=== PATIENT | female | born 1955 | race Caucasian/White ===

== ENCOUNTER 2016-12-14 06:03 | Emergency (ER) | payer OTHER ==
[~2016-12-14] VITALS: Ht 172.7 cm; Wt 65.0 kg
[~2016-12-14 06:03] MED LIST: ALBU8.5H3 INH; AMLO5TAB4 PO; ASPI-664 PO; ATOR20TA38 PO; AUG875 PO; AZIT250T94 PO; BUPR200T2 PO; CARV12.598 PO; GUAI120S26 PO; HYDR-3498 PO; NIT4 SL
[2016-12-14 06:16] VITALS: Ht 172.7 cm; Wt 65.0 kg
--- NOTE | 2016-12-14 07:16 | ERD ---
ER Documentation Chief Complaint Date/Time DATE: 12/14/16 TIME: 07:07 Chief Complaint Cough x1 month HPI Patient is a 61-year-old female with a history of hypertension, emphysema presents emergency department for concerns of a cough. Patient was seen here 1 month ago. At that time she had a cough. Patient states she took a Z-Beto and cough syrup which significantly improved her symptoms. Patient states her symptoms were resolved. Patient states her symptoms restarted 3 days ago. Patient describes her cough to be dry at this time. Patient reports feeling feverish and having chills. Patient did not check her temperature with a thermometer. Patient denies any chest pain, shortness of breath, nausea, vomiting, jaw pain, left upper extremity pain or loss of consciousness. Patient is requesting refill of cough syrup at this time. Of note, patient reports taking all medication as prescribed. Patient also states her last complete physical exam was 2 months ago with her PCP, does not recall name. ROS All systems reviewed and are negative except as per history of present illness. Medications Home Meds Active Scripts Epvxiuxhsnx-A-Scugugelrr Hb* (Guaifenesin* DM Syrup) 120 Ml Syrup, 5 ML PO Q4H Y for COUGH, #1 BOTTLE Prov:NIVIA TESFAYE PA-C 12/14/16 Benzonatate* (Tessalon Perle*) 100 Mg Capsule, 100 MG PO Q8H Y for COUGH, #20 CAP Prov:NIVIA TESFAYE PA-C 12/14/16 Cetirizine Hcl* (Zyrtec*) 10 Mg Capsule, 10 MG PO DAILY, #10 TAB.CHEW Prov:NIVIA TESFAYE PA-C 12/14/16 Albuterol Sulfate* (Proair HFA*) 8.5 Gm Hfa.aer.ad, 2 PUFF INH Q4H Y for WHEEZING AND SOB, #1 INHALER Prov:ARIANE NG NP 11/14/16 Ipiritnxqik-Q-Xbilkirotx Hb* (Guaifenesin* DM Syrup) 120 Ml Syrup, 10 ML PO Q4H Y for COUGH, #120 ML Prov:ARIANE NG NP 11/14/16 Azithromycin* (Zithromax*) 250 Mg Tablet, 250 MG PO .ZPACK DIRECTED, #6 TAB TAKE 500 MG (2 TABS) THE FIRST DAY THEN 250 MG (1 TAB) DAYS 2-5 Prov:ARIANE NG NP 11/14/16 Hydrocodone Bit-Acetaminophen* ([place]*) 5-325 Mg Tab, 1 TAB PO DAILY Y for PAIN , #7 TAB 0 Refills Prov:WIL ZAMORAC 05/11/15 Amoxicillin-Clavulanate K* (Augmentin*) 875 Mg Tab, 875 MG PO BID, #14 TAB 0 Refills Prov:WIL ZAMORAC 05/11/15 Hydrocodone Bit-Acetaminophen* ([place]*) 5-325 Mg Tab, 1 TAB PO Q6 Y for PAIN, # 7 TAB Prov:EMANI MIN PA-C 03/19/15 Amoxicillin-Clavulanate K* (Augmentin*) 875 Mg Tab, 875 MG PO BID for 10 Days, TAB Prov:EMANI MIN PA-C 03/19/15 Nitroglycerin* (Nitrostat*) 25 Tab Subl, 1 TAB SL Q5M Y for ANGINA for 28 Days, BOTTLE Prov:ACE GUTIERREZ MD 12/29/14 Aspirin* (Aspirin* EC) 81 Mg Tabec, 81 MG PO DAILY for 28 Days, BOT Prov:ACE GUTIERREZ MD 12/29/14 Reported Medications Bupropion Hcl* (Wellbutrin SR*) 200 Mg Tablet.sa, 200 MG PO BID, TAB.SA 12/27/14 Carvedilol* (Coreg*) 12.5 Mg Tablet, 12.5 MG PO BID, TAB 12/27/14 Atorvastatin Calcium* (Atorvastatin Calcium*) 20 Mg Tablet, 20 MG PO HS, TAB 12/27/14 Amlodipine Besylate* (Norvasc*) 5 Mg Tablet, 2.5 MG PO DAILY, TAB 12/27/14 Allergies Allergies: Coded Allergies: No Known Allergy (Unverified , 12/29/14) PMhx/Soc History of Surgery: Yes (APPENDECTOMY, CATARACT SX) Anesthesia Reaction: No Hx Neurological Disorder: No Hx Respiratory Disorders: Yes (emphysema) Hx Cardiac Disorders: Yes (HTN) Hx Psychiatric Problems: No Hx Miscellaneous Medical Probl: Yes (HTN, ANXIETY . stent 2010, raptured appedix) Hx Alcohol Use: No Hx Substance Use: No Hx Tobacco Use: Yes Smoking Status: Current some day smoker Physical Exam Vitals Vital Signs Date Time Temp Pulse Resp B/P Pulse Ox O2 Delivery O2 Flow Rate FiO2 12/14/16 06:16 97.6 60 20 151/64 99 Physical Exam GENERAL: Well-developed, well-nourished female. Appears in no acute distress. HEAD: Normocephalic, atraumatic. EYES: Pupils are equally reactive bilaterally. EOMs grossly intact. No conjunctival erythema. ENT: Moist mucous membranes. No uvula deviation. No kissing tonsils. Bilateral TM non erythematous, non bulging. No mastoid tenderness bilaterally. NECK: Supple. No meningismus. Normal range of motion of the neck. LUNG: Clear to auscultation bilaterally. No rhonchi, wheezing, rales or coarse breath sounds. HEART: Regular rate and rhythm. No murmurs, rubs or gallops. BACK: No midline tenderness. EXTREMITIES: Equal pulses bilaterally. No peripheral clubbing, cyanosis or edema. No unilateral leg swelling. NEUROLOGIC: Alert and oriented. Moving all four extremities without any difficulty. Normal speech. Steady gait. SKIN: Normal color. Warm and dry. No rashes or lesions. Procedures/MDM ED COURSE: The patient was stable throughout ED course. I kept the patient and/or family informed of laboratory and diagnostic imaging results throughout the ED course. DIAGNOSTIC IMAGING: Read by radiologist. Patient: EVELYN TIAN : 1955 Age: 61 Sex: F MR #: [id number] DOS: 12/14/16 0651 Ordering MD: NIVIA TESFAYE PA-C Location: [facility] Room/Bed: PROCEDURE: XR 1 view Chest. CLINICAL INDICATION: Cough. Fever. TECHNIQUE: Portable Single frontal view of the chest was obtained. COMPARISON: CR CHEST 12/27/2014 FINDINGS: The heart is normal in size. There are mild aortic calcifications. There is no focal consolidation. There is no pleural effusion. No pneumothorax is identified. The osseous structures are intact. IMPRESSION: No significant change. No evidence for acute cardiopulmonary disease. Aortic calcifications. Further findings as detailed above. RPTAT: PP .Tommy Drummond MD, MD Date Time Electronically viewed and signed by .Tommy Drummond MD, MD on 12/14/2016 07:43 .F/ CC: NIVIA TESFAYE PA-C PROCEDURES: None. MEDICAL DECISION MAKING: This is a 61 year old female who presents with dry cough x 3 days. Patient denied chest pain, shortness of breath, nausea, vomiting, left upper extremity or LOC. Vital signs were reviewed. Patient was afebrile. Patient was not hypoxic. ENT exam was normal. Lung exam was normal. CXR showed No significant change. No evidence for acute cardiopulmonary disease. Aortic calcifications. Given these findings, the patient's presentation is most consistent with viral URI with cough. I have a much lower clinical concern for bacterial infections including pneumonia, meningitis, sinusitis, otitis externa, acute otitis media, strep pharyngitis, epiglottitis or peritonsillar abscess. PRESCRIPTIONS: Tessalon perles, Zyrtec, Guaifenesin DM cough syrup DISCHARGE: At this time, patient is stable for discharge and outpatient management. Patient given copy of all imaging studies obtained today. Patient advised on smoking cessation. Supportive therapies such as OTC throat lozenges, salt water gurgles, popsicles and jello discussed. I have instructed the patient to follow- up with his/her primary care physician in 1-2 days. I have instructed the patient to promptly return to the ER for any new or worsening symptoms including increased pain, swelling, fever, nausea, vomiting, weakness or difficulty breathing. The patient and/or family expressed understanding of and agreement with this plan. All questions were answered. Home care instructions were provided. Patient's blood pressure was elevated (>120/80) but appears stable without evidence of hypertensive emergency, hypertensive urgency or end-organ failure. I had discussion with the patient about the risks of hypertension. I have advised the patient to follow up with his/her primary care physician for outpatient monitoring and treatment for hypertension in 2-3 days. I have instructed the patient to return to the ER for any new or worsening symptoms including chest pain, shortness of breath, headache, blurred vision, confusion, nausea, vomiting or LOC. Departure Diagnosis: Primary Impression: Cough Condition: Stable Patient Instructions: Cough, Chronic, Uncertain Cause, (Adult) Referrals: [facility] YOU HAVE RECEIVED A MEDICAL SCREENING EXAM AND THE RESULTS INDICATE THAT YOU DO NOT HAVE A CONDITION THAT REQUIRES URGENT TREATMENT IN THE EMERGENCY DEPARTMENT. FURTHER EVALUATION AND TREATMENT OF YOUR CONDITION CAN WAIT UNTIL YOU ARE SEEN IN YOUR DOCTORS OFFICE WITHIN THE NEXT 1-2 DAYS. IT IS YOUR RESPONSIBILITY TO MAKE AN APPOINTMENT FOR FOLOW-UP CARE. IF YOU HAVE A PRIMARY DOCTOR --you should call your primary doctor and schedule an appointment IF YOU DO NOT HAVE A PRIMARY DOCTOR YOU CAN CALL OUR PHYSICIAN REFERRAL HOTLINE AT IF YOU CAN NOT AFFORD TO SEE A PHYSICIAN YOU CAN CHOSE FROM THE FOLLOWING [facility] [address] [facility] [address] [facility] [facility] [address] [facility] [address] [facility] [address] [facility]. [facility]. [address] [facility] [address] [facility] YOU HAVE RECEIVED A MEDICAL SCREENING EXAM AND THE RESULTS INDICATE THAT YOU DO NOT HAVE A CONDITION THAT REQUIRES URGENT TREATMENT IN THE EMERGENCY DEPARTMENT. FURTHER EVALUATION AND TREATMENT OF YOUR CONDITION CAN WAIT UNTIL YOU ARE SEEN IN YOUR DOCTORS OFFICE WITHIN THE NEXT 1-2 DAYS. IT IS YOUR RESPONSIBILITY TO MAKE AN APPOINTMENT FOR FOLOW-UP CARE. IF YOU HAVE A PRIMARY DOCTOR --you should call your primary doctor and schedule and appointment IF YOU DO NOT HAVE A PRIMARY DOCTOR YOU CAN CALL OUR PHYSICIAN REFERRAL HOTLINE AT . IF YOU CAN NOT AFFORD TO SEE A PHYSICIAN YOU CAN CHOSE FROM THE FOLLOWING [facility] INSTITUTIONS: [facility] [address] [place] [address] [facility] [address] [place] [address] [facility] + [facility] [address] [place] [address] Additional Instructions: Call your primary care doctor TOMORROW for an appointment during the next 1-2 days.See the doctor sooner or return here if your condition worsens before your appointment time. NIVIA TESFAYE PA-C Dec 14, 2016 07:16
--- NOTE | 2016-12-14 07:44 | RADRPT ---
PROCEDURE: XR 1 view Chest. CLINICAL INDICATION: Cough. Fever. TECHNIQUE: Portable Single frontal view of the chest was obtained. COMPARISON: CR CHEST 12/27/2014 FINDINGS: The heart is normal in size. There are mild aortic calcifications. There is no focal consolidation. There is no pleural effusion. No pneumothorax is identified. The osseous structures are intact. IMPRESSION: No significant change. No evidence for acute cardiopulmonary disease. Aortic calcifications. Further findings as detailed above. RPTAT: PP .Tommy Drummond MD, Date Time Electronically viewed and signed by .Tommy Drummond MD, on 12/14/2016 07:43 .F/
[2016-12-14] MEDS ORDERED: CETI10CA PO (08:03)
[2016-12-14] MEDS ORDERED: BENZ100C70 PO (08:03)
[2016-12-14] MEDS ORDERED: GUAI120S26 PO (08:04)
== END 2016-12-14 08:18 | disposition home or self-care (01) ==
LOC: FTE 06:03
DX: R05 Cough (principal); I10 Essential (primary) hypertension; F17.210 Nicotine dependence, cigarettes, uncomplicated; Z79.82 Long term (current) use of aspirin
CPT/HCPCS: 71020; Z7502

== ENCOUNTER 2018-01-21 05:13 | Emergency (ER) | END 2018-01-21 06:45 | disposition home or self-care (01) ==

== ENCOUNTER 2018-02-03 20:49 | Emergency (ER) | END 2018-02-04 01:17 | disposition home or self-care (01) ==